=== PATIENT | female | born 1960 | race Caucasian/White ===

== ENCOUNTER 2019-09-06 12:31 | Outpatient (CLI) | payer OTHER ==
--- NOTE | 2019-09-06 20:26 | XRAY Report ---
Reason: RT ANLE PAIN AND INSTABILITY Procedure Date: 09/06/2019 Accession Number: [id number] / [id number] Procedure: XR - Ankle 3 View RT CPT Code: Final Report FULL RESULT: EXAM: RIGHT ANKLE RADIOGRAPHY EXAM DATE: 09/06/2019 12:49 PM. CLINICAL HISTORY: Right ankle pain and instability. COMPARISON: None available. TECHNIQUE: 3 views. FINDINGS: Bones: No acute fractures are evident. On the lateral view, there is an approximately 1.5 x 2.3 cm calcified body adjacent to the upper posterior aspect of the calcaneus. There is a 0.7 cm plantar calcaneal heel spur. Minor enthesopathy at the medial aspect of the medial malleolus. Joints: Joint alignment within normal limits. Soft Tissues: There is diffuse soft tissue thickening or swelling. IMPRESSION: 1. Diffuse soft tissue thickening or swelling. 2. No acute abnormalities. 3. Calcified body adjacent to the upper posterior aspect of the calcaneus probably represents a large os trigonum. RADIA
== END 2019-09-06 12:32 | disposition home or self-care (01) ==
LOC: DI 12:31
PROVIDERS: ATTEND Naturopath
DX: M79.89 Other specified soft tissue disorders (principal); R93.6 Abnormal findings on diagnostic imaging of limbs

== ENCOUNTER 2020-03-02 02:52 | Outpatient (CLI) | payer OTHER | END 2020-03-02 02:53 | disposition critical access hospital (66) | LOC: EMS 02:52 | PROVIDERS: ATTEND Surgery | DX: R07.9 Chest pain, unspecified (principal); R11.0 Nausea | CPT/HCPCS: A0425; A0427 ==

== ENCOUNTER 2020-03-02 02:58 | Emergency (ER) | payer OTHER ==
--- NOTE | 2020-03-02 02:59 | ED Physician Documentation ---
PD HPI CHEST PAIN - Stated complaint Stated Complaint: CP,NAUSEA - History obtained from History obtained from: Patient, EMS - History of Present Illness Timing - onset: Enter time (01:15), Today Timing - onset during: Sleep Timing - details: Abrupt onset Pain level now: 8 Quality: Pain Location: Substernal Radiation: Back Improved by: Nothing Worsened by: Other (nothing) Associated symptoms: Shortness of air, Nausea, Vomiting. No: Diaphoresis Similar symptoms before: Has not had sx before Recently seen: Not recently seen - Additional information Additional information: BIBA. woke 1:15 AM this morning with midline low chest pain/epigastric pain that radiates straight through to back, with nausea and vomiting. Was 6/10, given 1 SLNTG and 324mg ASA but pain worsened to 8/10 en route. Blood sugar 112. Denies h/o similar symptoms Review of Systems Constitutional: denies: Fever, Chills, Sweats Cardiac: reports: Chest pain / pressure. denies: Palpitations, Pedal edema, Calf pain Respiratory: reports: Dyspnea. denies: Cough, Wheezing GI: reports: Abdominal Pain, Nausea, Vomiting. denies: Constipation, Diarrhea : denies: Dysuria, Frequency PD PAST MEDICAL HISTORY - Past Medical History Past Medical History: Yes Cardiovascular: Hypertension Endocrine/Autoimmune: HyPOthyroidism - Past Surgical History /POLLUTION CONTROL TECHNICIAN: section - Present Medications Home Medications: Ambulatory Orders Medication Instructions Recorded Confirmed Levothyroxine [Synthroid] 100 mcg PO DAILY 03/02/20 03/02/20 Lisinopril/Hydrochlorothiazide 1 each PO 03/02/20 [Lisinopril-Hctz 20-12.5 mg Tab] Oxycodone HCl/Acetaminophen 1 - 2 each PO Q6H PRN #14 tablet 03/02/20 [Percocet 5-325 mg Tablet] Promethazine [Phenergan] 25 - 50 mg PO Q6H PRN #14 tab 03/02/20 - Allergies Allergies/Adverse Reactions: Allergies Allergy/AdvReac Type Severity Reaction Status Date / Time No Known Drug Allergies Allergy Verified 03/02/20 03:26 - Living Situation Living Situation: reports: With family Living Arrangement: reports: At home - Social History Does the pt smoke?: No PD ED PE NORMAL - Vitals Vital signs reviewed: Yes - General General: Alert and oriented X 3, Well developed/nourished, Other (obvious painful distress, waxing and waning during H+P) - HEENT HEENT: Moist mucous membranes - Neck Neck: Supple, no meningeal sign - Cardiac Cardiac: RRR, No murmur, No gallop, No rub - Respiratory Respiratory: No respiratory distress, Clear bilaterally - Abdomen Abdomen: Soft, Non distended, Other (mild epigastric and RUQ tenderness without rebound or guarding) - Back Back: No CVA TTP - Derm Derm: Normal color, Warm and dry, No rash - Extremities Extremities: No edema - Neuro Neuro: Alert and oriented X 3 Results - Vitals Vitals: Vital Signs - 24 hr 03/02/20 03/02/20 03/02/20 03:04 04:00 04:30 Temperature 36.7 C Heart Rate 55 L 55 L 58 L Respiratory 18 14 16 Rate Blood Pressure 126/62 97/54 L 118/57 L O2 Saturation 95 98 98 03/02/20 03/02/20 03/02/20 05:52 07:34 08:40 Temperature 36.7 C Heart Rate 53 L 52 L 66 Respiratory 20 18 20 Rate Blood Pressure 147/61 H 122/59 L 136/67 H O2 Saturation 98 98 97 Oxygen O2 Source Room air - Labs Labs: Laboratory Tests 03/02/20 03/02/20 03/02/20 03:20 03:20 03:20 WBC 8.3 RBC 4.80 Hgb 13.8 Hct 41.6 MCV 86.7 MCH 28.8 MCHC 33.2 RDW 13.9 Plt Count 220 MPV 10.0 Neut # (Auto) 4.8 Lymph # (Auto) 2.3 Barry # (Auto) 0.8 Eos # (Auto) 0.2 Baso # (Auto) 0.1 Absolute Nucleated RBC 0.00 Nucleated RBC % 0.0 D-Dimer Sodium 136 Potassium 3.8 Chloride 98 L Carbon Dioxide 28 Anion Gap 10.0 BUN 23 H Creatinine 0.7 Estimated GFR (MDRD) 85 L Glucose 149 H Calcium 9.2 Total Bilirubin 0.9 AST 78 H ALT 41 Alkaline Phosphatase 80 Troponin I High Sens 4.6 Total Protein 6.4 L Albumin 3.4 Globulin 3.0 Albumin/Globulin Ratio 1.1 Lipase 37 03/02/20 03:20 WBC RBC Hgb Hct MCV MCH MCHC RDW Plt Count MPV Neut # (Auto) Lymph # (Auto) Barry # (Auto) Eos # (Auto) Baso # (Auto) Absolute Nucleated RBC Nucleated RBC % D-Dimer 908.4 H Sodium Potassium Chloride Carbon Dioxide Anion Gap BUN Creatinine Estimated GFR (MDRD) Glucose Calcium Total Bilirubin AST ALT Alkaline Phosphatase Troponin I High Sens Total Protein Albumin Globulin Albumin/Globulin Ratio Lipase - Rads (name of study) cxr Radiology: Prelim report reviewed, See rad report CT chest angio Radiology: Prelim report reviewed, See rad report RUQ US Radiology: Prelim report reviewed, See rad report PD MEDICAL DECISION MAKING - ED course Complexity details: reviewed results, re-evaluated patient, considered differential, d/w patient, d/w family Departure - Departure Disposition: 01 Home, Self Care Clinical Impression: Biliary colic Condition: Good Instructions: ED Gallstone W Biliary Colic Follow-Up: Kyler Yanes MD [Provider Admit Priv/Credential] - KASHIF CARDONA ND [Primary Care Provider] - Prescriptions: Oxycodone HCl/Acetaminophen [Percocet 5-325 mg Tablet] 1 - 2 each PO Q6H PRN #14 tablet PRN Reason: pain Promethazine [Phenergan] 25 - 50 mg PO Q6H PRN #14 tab PRN Reason: Nausea / Vomiting
[2020-03-02 03:26] LABS: BASOPHILS # (AUTO) 0.1 10^3/uL (0.0-0.1); EOSINOPHILS # (AUTO) 0.2 10^3/uL (0.0-0.7); EOSINOPHILS % (AUTO) 2.9 %; HGB - HEMOGLOBIN 13.8 g/dL (12.0-16.0); LYMPHOCYTES # (AUTO) 2.3 10^3/uL (1.5-3.5); LYMPHOCYTES % (AUTO) 27.8 %; MEAN CORPUSCULAR HEMOGLOBIN 28.8 pg (27.0-31.0); MEAN CORPUSCULAR HGB CONC 33.2 g/dL (32.0-36.0); MEAN CORPUSCULAR VOLUME 86.7 fL (81.0-99.0); MONOCYTES # (AUTO) 0.8 10^3/uL (0.0-1.0); MONOCYTES % (AUTO) 10.1 %; NEUTROPHILS # (AUTO) 4.8 10^3/uL (1.5-6.6); NEUTROPHILS % (AUTO) 57.8 %; PLT - PLATELET COUNT 220 10^3/uL (130-450); RED CELL DISTRIBUTION WIDTH 13.9 % (12.0-15.0); WHITE BLOOD COUNT 8.3 x10^3/uL (4.8-10.8)
[2020-03-02 03:38] LABS: ALBUMIN 3.4 g/dL (3.2-5.5); ALBUMIN/GLOBULIN RATIO 1.1 (1.0-2.2); BILIRUBIN,TOTAL 0.9 mg/dL (0.2-1.0); CALCIUM 9.2 mg/dL (8.5-10.3); CREATININE 0.7 mg/dL (0.4-1.0); TOTAL PROTEIN 6.4 g/dL (6.7-8.2)
[2020-03-02] MEDS ORDERED: SODIUM CHLORIDE 0.9% 1,000 ML IV STA (03:40)
[2020-03-02] MEDS ORDERED: ONDANSETRON 4 MG/2 ML VIAL IVP STA ×2 (03:40→04:53)
[2020-03-02] MEDS ORDERED: KETOROLAC 30 MG/ML VIAL IVP STA (03:41)
[2020-03-02] MEDS ORDERED: IOVERSOL 320 100 ML VIAL IVP ONE ×2 (04:25→05:07)
[2020-03-02] MEDS ORDERED: MORPHINE 2 MG/ML CARPUJECT IVP STA ×3 (04:39→06:55)
[2020-03-02] MEDS ORDERED: PROMETHAZINE INJ 12.5 MG in SODIUM CHLORIDE 0.9% 50 ML IV STA (06:55)
[2020-03-02] MEDS ORDERED: PROMETHAZINE 25 MG/1 ML VIAL ONE (07:19)
--- NOTE | 2020-03-02 07:19 | CT Report ---
PROCEDURE: ANGIO CHEST W/WO INDICATIONS: chest pain, dyspnea, elevated d-dimer CONTRAST: IV CONTRAST: Optiray 320 ml: 80 PO CONTRAST: *NO PO CONTRAST TECHNIQUE: After the administration of intravenous contrast, 2 mm thick sections acquired from the pulmonary api lazara to the posterior costophrenic angles. 3-dimensional maximum intensity projection (MIP) coronal a nd sagittal reformats were then acquired through the thorax. For radiation dose reduction, the follow ing was used: automated exposure control, adjustment of mA and/or kV according to patient size. COMPARISON: Chest x-ray 03/02/2020 FINDINGS: Image quality: Excellent. Pulmonary arteries: Pulmonary arteries are normal in size, and demonstrate no intraluminal filling d efects to suggest central pulmonary embolism. Lungs and pleura: Lungs are clear. No pleural effusions or pneumothorax. Central and peripheral ai rways are patent. Mediastinum: Heart size is normal, without pericardial effusion. No mediastinal or hilar adenopathy . Thoracic aorta is normal in caliber and enhancement. Esophagus is normal in caliber. Small hiatal hernia. Bones and chest wall: No suspicious bony lesions. Ribs and thoracic spine appear intact throughout. Spine degenerative disc disease and facet arthropathy are noted. The thyroid is normal. No axillar y or supraclavicular adenopathy. Abdomen: Visualized upper abdominal solid organs appear normal in the early arterial phase of enhanc ement. IMPRESSION: 1. No pulmonary embolus. 2. No lung consolidation or pleural effusions. Reviewed by: Abbey Lieberman MD, PhD on 03/02/2020 7:18 AM PDT Approved by: Abbey Lieberman MD, PhD on 03/02/2020 7:18 AM PDT Station ID: [id number]
--- NOTE | 2020-03-02 08:10 | XRAY Report ---
PROCEDURE: Chest 1 View X-Ray INDICATIONS: Chest pain TECHNIQUE: One view of the chest was acquired. COMPARISON: None FINDINGS: Surgical changes and devices: None. Lungs and pleura: No pleural effusions or pneumothorax. Lungs are clear. Mediastinum: Mediastinal contours appear normal. Heart size is normal. Bones and chest wall: No suspicious bony lesions. Overlying soft tissues appear unremarkable. IMPRESSION: No acute cardiopulmonary disease process. Reviewed by: Abbey Lieberman MD, PhD on 03/02/2020 8:08 AM PDT Approved by: Abbey Lieberman MD, PhD on 03/02/2020 8:08 AM PDT Station ID: [id number]
--- NOTE | 2020-03-02 08:15 | Ultrasound Report ---
PROCEDURE: Abdomen Limited INDICATIONS: epigastric pain TECHNIQUE: Real-time scanning was performed of the abdominal and retroperitoneal organs, with image documentatio n. COMPARISON: None. FINDINGS: Liver: Liver is normal in size and homogeneous in echotexture. Liver is echogenic. No focal hepatic mass lesions. Gallbladder: Prominent gallbladder noted compatible with gall bladder hydrops. Multiple nonmobile sto mariana. Gallbladder wall is thickened to 5 mm. No pericholecystic fluid. No sonographic Joseph sign (pat ient on pain meds at time of imaging). Biliary ducts: Intrahepatic bile ducts are non-dilated. Extrahepatic bile duct caliber measures 4.0 mm. Normal is 6-7 mm or less in diameter, or 10 mm or less post-cholecystectomy. Pancreas: Visualized portions of the pancreas are sonographically normal. Tail of pancreas obscured by bowel gas and cannot be evaluated. Spleen: Not imaged. Kidneys: Left kidney not imaged Right kidney normal in size and echotexture. Right kidney measures 1 0.8 cm long; No hydronephrosis or nephrolithiasis. No solid masses. Aorta: Not imaged. Iliacs: Not imaged. IVC: Intrahepatic inferior vena cava is patent. Miscellaneous: No free abdominal fluid. IMPRESSION: 1. Cholelithiasis with gallbladder hydrops and gallbladder wall thickening. Findings are suspicious f or acute cholecystitis. 2. Echogenic liver. Finding typically represents fatty infiltration, however finding is nonspecific a nd other etiologies including hepatic cirrhosis can produce a similar appearance. Recommend correlati on with clinical and laboratory data. Reviewed by: Abbey Lieberman MD, PhD on 03/02/2020 8:14 AM PDT Approved by: Abbey Lieberman MD, PhD on 03/02/2020 8:14 AM PDT Station ID: [id number]
[2020-03-02 08:41] VITALS: BP 136/67
== END 2020-03-02 08:51 | disposition home or self-care (01) ==
LOC: EDUNIT# → ED 02:58
DX: K80.70 Calculus of gallbladder and bile duct without cholecystitis without obstruction (principal); I10 Essential (primary) hypertension
CPT/HCPCS: 36415; 71045; 71275; 76705; 80053; 83690; 84484; 85025; 85379; 93005; 96365; 96375; 96376; 99284; J7040; Q9967

== ENCOUNTER 2020-04-11 15:46 | Outpatient (CLI) | payer OTHER ==
--- NOTE | 2020-04-11 16:47 | Ultrasound Report ---
PROCEDURE: Duplex Ext Veins Right INDICATIONS: ANKLE SWELLING, ELEVATED D-DIMER, R/O DVT. TECHNIQUE: Real-time imaging, as well as color and pulse Doppler interrogation, were performed of the lower extr emity deep veins from the inguinal ligament to the popliteal fossa. COMPARISON: None. FINDINGS: The deep veins are normally compressible, and free of intraluminal thrombus. Color and pu lse Doppler demonstrate normal phasic intraluminal flow. There is normal augmentation response to di stal compression maneuver. IMPRESSION: No sonographic evidence of DVT. Reviewed by: Rayo Parmar MD on 04/11/2020 4:46 PM PDT Approved by: Rayo Parmar MD on 04/11/2020 4:46 PM PDT Station ID: [id number]
== END 2020-04-11 15:47 | disposition home or self-care (01) ==
LOC: DI 15:46
PROVIDERS: ATTEND Naturopath
DX: R79.89 Other specified abnormal findings of blood chemistry (principal); M25.471 Effusion, right ankle; R60.0 Localized edema